=== PATIENT | male | born 1975 | race Caucasian/White ===

== ENCOUNTER 2016-10-08 06:55 | Emergency (ER) | payer OTHER ==
[2016-10-08 08:42] LABS: BASOPHIL 0.2 % (0-2); EOSINOPHIL 0.1 % (0-5); HGB 15.4 g/dl (13.2-18.0); LYMPHOCYTE 9.5 % (15-48); MCH 32.9 pg (25.0-31.0); MONOCYTE 8.6 % (0-12); NEUTROPHIL 81.6 % (41-80); PLT 202 K/uL (150-400); RBC 4.68 M/uL (4.70-6.00); RDW 12.6 % (11.5-14.0); WBC 14.9 K/uL (4.0-10.5)
[2016-10-08 09:01] LABS: CREATININE 0.9 mg/dL (0.7-1.2); POTASSIUM 4.1 mmol/L (3.5-5.1)
== END 2016-10-08 11:02 | disposition home or self-care (01) ==
LOC: FER 06:55
PROVIDERS: Internal Medicine
DX: L02.416 Cutaneous abscess of left lower limb (principal)
CPT/HCPCS: 36415; 80048; 83605; 85025; 87040; 87070; 87205

== ENCOUNTER 2021-08-26 14:17 | Emergency (ER) | payer OTHER ==
[2021-08-26 17:15] LABS: BASOPHIL 0.1 % (0-2); EOSINOPHIL 0.2 % (0-5); HCT 44.2 % (42.0-52.0); HGB 15.2 g/dl (13.2-18.0); LYMPHOCYTE 12.5 % (15-48); MCH 32.7 pg (25.0-31.0); MCHC 34.4 g/dL (32.0-36.0); MCV 95.1 fL (78.0-100.0); MONOCYTE 5.5 % (0-12); MPV 8.4 fL (6.0-9.5); NEUTROPHIL 81.2 % (41-80); NRBC 0; PLT 239 K/uL (150-400); RBC 4.65 M/uL (4.70-6.00); RDW 13.5 % (11.5-14.0); WBC 12.9 K/uL (4.0-10.5)
[2021-08-26 17:45] LABS: BUN/CREAT RATIO (CALC) 25.3 RATIO; CREATININE 0.75 mg/dL (0.67-1.17); POTASSIUM 4.1 mmol/L (3.5-5.1)
== END 2021-08-26 18:40 | disposition home or self-care (01) ==
LOC: FER 14:17
PROVIDERS: Nurse Practitioner Family
DX: M79.662 Pain in left lower leg (principal); F17.210 Nicotine dependence, cigarettes, uncomplicated; W19.XXXA Unspecified fall, initial encounter
CPT/HCPCS: 36415; 80048; 85025; 85379; 93971; 96372; J1100; J1885